=== PATIENT | female | born 1945 | race Hispanic/Latino ===

== ENCOUNTER 2018-10-07 11:34 | Inpatient (IN) | payer MEDICARE, OTHER ==
[~2018-10-07] VITALS: Ht 154.9 cm; Wt 93.0 kg
[~2018-10-07 11:34] MED LIST: LATANOPROST2.5 ML OP; LOSARTAN PO; MECLIZINE HCL12.5 MG PO; METOPROLOL PO; NAPROXEN250 MG PO; RANITIDINE HCL300 M1 PO; SERTRALINE HCL50 MG PO; SIMVASTATIN40 MG PO
--- OUTSIDE RECORDS SUMMARY | 2018-10-07 11:39 | XMS REPORT ---
[facility] Address Unknown Phone Unavailable Care Team Providers Care [employer] Salesperson Name Role Phone SILVINO OLIVAS Unavailable Unavailable Problems This patient has no known problems. Allergies, Adverse Reactions, Alerts This patient has no known allergies or adverse reactions. Medications This patient has no known medications. Results Test Description Test Time Test Comments Text Results Atomic Results Result Comments ABDOMEN-1VIEW (KUB) [place] [address] Patient Name: LEIGHA BARRETT MR #: [id number] : 1945 Age/Sex: 71/F [id number] Req #: [id number] Adm Physician: Ordered by: SILVINO OLIVAS MD Report #: [id number] Location: OR Room/Bed: Procedure: [id number] DX/ABDOMEN-1VIEW (KUB) Exam Date: 02/19/17 Exam Time: 0615 REPORT STATUS: Signed Exam: Abdominal film Clinical History: Preoperative study, renal stones Comparison: 02/05/2017 DISCUSSION: Large, laminated oblong calcification projecting over the right upper quadrant likely lies within the gallbladder. Suspected 7 mm calculus projecting over the right renal shadow is unchanged, as is a 19 mm cluster of calcifications projecting over the lower pole left renal shadow. 6-7 mm calculus more centrally projecting over the left renal shadow is less conspicuous on the current study. Bowel gas pattern is nonobstructive. Regional skeletal structures are intact. Degenerative disc changes of the lumbar spine IMPRESSION: Bilateral nephrolithiasis as above. Signed by: Dr. Dusty Jo M.D. on 02/19/2017 7:22 AM Dictated By: DUSTY JO MD 1 Transcribed By: SANTHOSH on 02/19/17721 COPY TO: SILVINO OLIVAS MD ABDOMEN-1VIEW (KUB) [place] [address] Patient Name: LEIGHA BARRETT MR #: [id number] : 1945 Age/Sex: 71/F [id number] Req #: [id number] Adm Physician: Ordered by: SILVINO OLIVAS MD Report #: [id number] Location: OR Room/Bed: Procedure: [id number] DX/ABDOMEN-1VIEW (KUB) Exam Date: 02/05/17 Exam Time: 0630 REPORT STATUS: Signed ABDOMEN-1VIEW (KUB) Clinical history: Preoperative, stones Technique: AP view abdomen, one view provided Comparison: 08/04/2015 Findings: Abdomen: Nonobstructive bowel gas pattern. Other: 7.7 cm lamellated stone is seen in the right upper quadrant possibly a gallstone. Multiple stones overlie the left kidney. The largest measures 2 cm over the left inferior pole with additional 7 and 5 mm adjacent stones inferiorly. 7 mm stone overlies the left renal pelvis, not seen on prior. Possible 7 mm calculus versus stool contents overlying the right kidney. Impression: Bilateral nephrolithiasis, increased from prior. Signed by: Dr Rachel Mueller MD on 02/05/2017 6:45 AM Dictated By: RACHEL MUELLER MD Transcribed By: Sahil SANTORO on 02/05/17 0645 COPY TO: SILVINO OLIVAS MD CHEST 2 VIEWS [facility] [address] [place] [address] Patient Name: LEIGHA BARRETT MR #: [id number] : 1945 Age/Sex: 71/F Req #: [id number] Adm Physician: Ordered by: SILVINO OLIVAS MD Report #: [id number] Location: OR Room/Bed: Procedure: [id number] DX/CHEST 2 VIEWS Exam Date: 02/03/17 Exam Time: 1315 REPORT STATUS: Signed PROCEDURE: Frontal and lateral views of the chest. COMPARISON: Chest 2 views 01/10/2016. INDICATIONS: PRE OPERATIVE CHEST X-RAY FOR RETROGRADE PYELOGRAM FINDINGS: Lines/tubes: None. Lungs: The lungs are well inflated and clear. There is no evidence of pneumonia or pulmonary edema. Pleura: There is no pleural effusion or pneumothorax. Heart and mediastinum: The heart and the mediastinum are normal. Bones: No acute bony abnormality. Degenerative changes of the thoracic spine. IMPRESSION: No acute radiographic abnormality. Dictated by: Ming Haas M.D. on 02/03/2017 at 13:39 Electronically approved by: Ming Haas M.D. on 02/03/2017 at 13:39 Dictated By: MING HAAS MD 1340 Transcribed By: STEPHON on 02/03/17 1340 COPY TO: SILVINO OLIVAS MD
[2018-10-07] MEDS ORDERED: SODIUM CHLORIDE 0.9% 1000ML 1,000 ML IV STA ×2 (12:36→16:27)
[2018-10-07] MEDS ORDERED: ONDANSETRON HCL INJ 2MG/ML 2ML 2 MG/ML VIAL IV STA (12:36)
[2018-10-07] MEDS ORDERED: ACETAMINOPHEN 325 MG TAB PO ONE (12:45)
[2018-10-07] MEDS: MEROPENEM 1GM 100 ML IV SCH ×2 (14:01→22:38)
[2018-10-07 14:15] LABS: BASOPHILS % 0.3 % (0.0-1.0); HEMATOCRIT 37.6 % (34.2-44.1); HEMOGLOBIN 13.2 g/dL (12.0-16.0); LYMPHOCYTES # (AUTO) 0.4 (1.0-3.2); LYMPHOCYTES % 12.5 % (18.0-39.1); MEAN CORPUSCULAR HEMOGLOBIN 31.4 pg (28-32); MEAN CORPUSCULAR HGB CONC 35.1 g/dL (31-35); MEAN CORPUSCULAR VOLUME 89.3 fL (81-99); MONOCYTES # (AUTO) 0.1 (0.2-0.8); MONOCYTES % 4.2 % (4.4-11.3); NEUTROPHILS # (AUTO) 2.6 (2.1-6.9); RED BLOOD COUNT 4.21 x10e6/uL (3.6-5.1)
[2018-10-07 14:17] LABS: PLATELET COUNT 43 x10e3/uL (140-360)
[2018-10-07 14:36] LABS: ALBUMIN 2.8 g/dL (3.5-5.0); ALBUMIN/GLOBULIN RATIO 0.8 (0.8-2.0); ANION GAP 12.6 mmol/L (8-16); CALCIUM 9.1 mg/dL (8.4-10.2); CREATININE, SERUM 1.65 mg/dL (0.57-1.11); POTASSIUM 3.6 mmol/L (3.5-5.1)
[2018-10-07 14:42] LABS: CREATINE KINASE MB 1.3 ng/mL (0-5.0)
[2018-10-07 14:59] LABS: B-TYPE NATRIURETIC PEPTIDE2 151.8 pg/mL (0-100)
[2018-10-07 15:18] LABS: CLARITY,URINE HAZY (CLEAR); COLOR,URINE YELLOW (YELLOW); LEUKOCYTE ESTERASE ,URINE 1+ (NEGATIVE)
[2018-10-07 15:19] LABS: BILIRUBIN,URINE NEGATIVE (NEGATIVE); KETONES,URINE NEGATIVE (NEGATIVE); NITRITE,URINE NEGATIVE (NEGATIVE); PROTEIN,URINE DIPSTICK NEGATIVE (NEGATIVE); URINE UROBILINOGEN 0.2 mg/dL (0.2 - 1)
[2018-10-07 15:36] LABS: BACTERIA,URINE MODERATE /HPF; EPITHELIAL CELLS,URINE MODERATE /LPF
[2018-10-07] MEDS ORDERED: SODIUM CHLORIDE 0.9% 1000ML 1,000 ML ONE (16:33)
[2018-10-07 16:58] LABS: LYMPHOCYTES % (MANUAL) 10 % (19-48); MONOCYTES % (MANUAL) 1 % (3.4-9.0); NEUTROPHILS % (MANUAL) 87 % (40-74)
[2018-10-07 16:59] LABS: PLATELET ESTIMATE MARKEDLY DECREASED; PLATELET MORPHOLOGY COMMENT FEW LARGE; RBC MORPHOLOGY COMMENT NORMAL
[2018-10-07] MEDS ORDERED: ONDANSETRON HCL INJ 2MG/ML 2ML 2 MG/ML VIAL IV PRN (18:30)
[2018-10-07] MEDS ORDERED: CEFUROXIME250 MG PO (19:11)
[2018-10-07] MEDS ORDERED: NAPROXEN250 MG PO (19:11)
[2018-10-07] MEDS: SODIUM CHLORIDE 0.9% 1000ML 1,000 ML IV SCH (19:13)
[2018-10-07 19:45] VITALS: BP 126/53
--- NOTE | 2018-10-07 19:45 | NUR ---
RECEIVED PATIENT FROM THE EMERGENCY ROOM VIA STRETCHER. ASSISTED TO TRANSFER TO BED. PATIENT IS ALERT AND ORIENTED. IV TO RIGHT AC 20G INTACT WITH ON GOING FLUIDS OF NS AT 100 CC/HR. ORIENTED TO ROOM. CALL LIGHT WITHIN REACHED AND ENCOURAGED TO USE.
[2018-10-07] MEDS: ACETAMINOPHEN 325 MG TAB PO PRN (20:27)
[2018-10-07 20:31] VITALS: BP 126/53
--- NOTE | 2018-10-07 20:58 | Diagnostic Imaging Report ---
Examination: Single AP view of the chest. COMPARISON: None. INDICATION: Urinary infection, fever IMPRESSION: 1. Lines and Tubes: None 2. Lungs are grossly clear. No consolidation or effusion. 3. Cardiomediastinal silhouette is normal. Pulmonary vasculature is normal. 4. No acute bony abnormalities. Signed by: Dr. Jeffrey Shane M.D. on 10/07/2018 8:55 PM
[2018-10-07 23:45] VITALS: BP 102/53
[2018-10-08] VITALS (8 sets, daily range): BP systolic 101–136; BP diastolic 46–63
[2018-10-08] MEDS: SODIUM CHLORIDE 0.9% 1000ML 1,000 ML IV SCH (04:24)
[2018-10-08] MEDS: ACETAMINOPHEN 325 MG TAB PO PRN ×3 (04:28→18:25)
--- NOTE | 2018-10-08 07:06 | NUR ---
RECEIVED PATIENT RESTING IN BED. NO ACUTE DISTRESS NOTED. DENIES PAIN OR DISCOMFORT. FAMILY AT BEDSIDE. CALL LIGHT WITHIN REACH.
[2018-10-08] MEDS: MEROPENEM 1GM 100 ML IV SCH ×2 (08:19→20:07)
[2018-10-08] MEDS: SERTRALINE HCL 50 MG TAB PO SCH (10:50)
[2018-10-08] MEDS: FAMOTIDINE 20 MG TAB PO SCH (10:50)
--- NOTE | 2018-10-08 14:38 | Diagnostic Imaging Report ---
EXAMINATION: CT of the abdomen and pelvis without contrast. TECHNIQUE: Spiral CT images of the abdomen and pelvis were performed from the lung bases to the lesser trochanters. No intravenous contrast was given per renal stone protocol. Coronal and sagittal reformatted images were obtained. Technique modification was performed to maintain the lowest dose possible to the patient. DLP: 735.44 mGy-cm COMPARISON: None. CLINICAL HISTORY:Fever, urinary tract infection and hypotension DISCUSSION: ABSENCE OF INTRAVENOUS CONTRAST DECREASES SENSITIVITY FOR DETECTION OF FOCAL LESIONS AND VASCULAR PATHOLOGY. ABDOMEN/PELVIS: LOWER THORAX: Small bilateral pleural effusions. Tiny pericardial effusion HEPATOBILIARY:No focal hepatic lesions. Nodular surface of the liver suggests cirrhosis. No biliary ductal dilation. There is a porcelain gallbladder. SPLEEN: No splenomegaly. PANCREAS: No focal masses or ductal dilatation. ADRENALS: No adrenal nodules. KIDNEYS/URETERS: Stones present within both kidneys. No hydronephrosis. Bilateral renal cortical thinning. Hypodensity within both renal regions and particularly in the upper pole likely represents edema. PELVIC ORGANS/BLADDER: The bladder is normal. PERITONEUM/RETROPERITONEUM: Minimal amount of free fluid in the pelvis. LYMPH NODES: No intra-abdominal,retroperitoneal, pelvic or inguinal lymphadenopathy. VESSELS: Vascular calcification. GI TRACT: No distention or wall thickening. Appendicolith within the base of the appendix without associated inflammatory changes. BONES AND SOFT TISSUES: No bony destructive lesions. Degenerative changes of the spine with significant disc space narrowing at L4-L5. No soft tissue abnormalities. IMPRESSION: 1. 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 2. Bilateral renal lithiasis. 3. Bilateral renal cortical atrophy. Signed by: Dr. Roderick Gutierrez DO on 10/08/2018 2:34 PM
--- NOTE | 2018-10-08 16:20 | History and Physical ---
CHIEF COMPLAINT: Fever, low blood pressure, recurrent urinary tract infection, failed outpatient treatment. HISTORY OF PRESENT ILLNESS: The patient is a 72-year-old female had bilateral kidney stones, had recurrent urinary tract infection in light of taking oral antibiotics. The patient came to the hospital with fever and low blood pressure. The patient was given normal saline and antibiotics, meropenem. She is doing a bit better. She did receive multiple bolus of IV fluid. PAST MEDICAL HISTORY: Recurrent urinary tract infection secondary to kidney stone. The patient is supposed to have cystoscopy with stone management, but because of her fever and infection, her procedure has been postponed with Dr. Alberto Tucker. The patient has hypertension. PAST SURGICAL HISTORY: Noncontributory. SOCIAL HISTORY: The patient does not smoke or use alcohol. No recreational drugs. ALLERGIES: PENICILLIN AND TAZOBACTAM. HOME MEDICATIONS: List reviewed. REVIEW OF SYSTEMS: As mentioned above. PHYSICAL EXAMINATION: VITAL SIGNS: Temperature is 99, blood pressure 111/53 on IV fluid, pulse rate 75, respirations 22. GENERAL: The patient is not in acute distress. She is awake. HEENT: Normocephalic, atraumatic. Anicteric. NECK: Supple grossly. PULMONARY: Diminished breath sounds. CARDIOVASCULAR: S1, S2. Regular rate and rhythm. ABDOMEN: Soft, obese, nontender, non-distention. EXTREMITIES: No cyanosis or edema. NEUROLOGIC: No gross focal deficit. LABORATORY DATA: WBC is 3.1, hemoglobin 13.2, hematocrit 37.6, platelets 43. Sodium is 124, potassium 3.6, chloride 94, bicarb 21, BUN 18, creatinine 1.6, glucose 124. IMPRESSION: 1. Sepsis with shock. 2. Thrombocytopenia, most likely from the above. 3. Hypotension, improving with multiple bolus IV fluids. 4. Kidney stone with infection, recurrent, urinary tract infection, failed outpatient treatment. PLAN: 1. Consultation with Dr. Godwin Charles for low platelet. 2. Consulting with Dr. Alberto Tucker. 3. Continue with meropenem and IV fluid. Resume some patient home medication. 4. We will monitor the patient closely at this time. MD HAILEY Lopez/LILLIE /[id number]
[2018-10-08] MEDS ORDERED: ONDANSETRON HCL 4 MG ORAL DISINTEGRATING TAB PO PRN (16:30)
--- NOTE | 2018-10-08 19:18 | NUR ---
REPORT GIVEN TO ONCOMING NURSE, WALKING ROUNDS DONE. PATIENT IS RESTING IN BED. NO ACUTE DISTRESS NOTED. DAUGHTER AT BEDSIDE. CALL LIGHT WITHIN REACH. BED IN THE LOWEST POSITION.
[2018-10-08] MEDS: SIMVASTATIN 40 MG TAB PO SCH (20:06)
[2018-10-08] MEDS ORDERED: LOPERAMIDE HCL 2 MG CAP PO PRN (20:15)
[2018-10-09] VITALS (8 sets, daily range): BP systolic 86–141; BP diastolic 48–67
[2018-10-09] MEDS: SODIUM CHLORIDE 0.9% 1000ML 1,000 ML IV SCH ×3 (00:24→16:57)
[2018-10-09] MEDS: ACETAMINOPHEN 325 MG TAB PO PRN ×4 (01:02→18:21)
[2018-10-09 05:53] LABS: HEMATOCRIT 32.3 % (34.2-44.1); HEMOGLOBIN 11.4 g/dL (12.0-16.0); LYMPHOCYTES # (AUTO) 0.5 (1.0-3.2); LYMPHOCYTES % 24.2 % (18.0-39.1); MEAN CORPUSCULAR HEMOGLOBIN 31.5 pg (28-32); MEAN CORPUSCULAR HGB CONC 35.3 g/dL (31-35); MEAN CORPUSCULAR VOLUME 89.2 fL (81-99); MONOCYTES # (AUTO) 0.2 (0.2-0.8); MONOCYTES % 8.2 % (4.4-11.3); NEUTROPHILS # (AUTO) 1.3 (2.1-6.9); NEUTROPHILS % 67.1 % (38.7-80.0); RED BLOOD COUNT 3.62 x10e6/uL (3.6-5.1); RED CELL DISTRIBUTION WIDTH 14.2 % (11.7-14.4)
[2018-10-09 06:04] LABS: INR 0.96; PROTHROMBIN TIME 13.3 seconds (11.9-14.5)
[2018-10-09 06:05] LABS: PARTIAL THROMBOPLASTIN TIME 38.7 seconds (23.8-35.5)
[2018-10-09 06:12] LABS: ALANINE AMINOTRANSFERASE 78 IU/L (0-55); ALBUMIN 2.2 g/dL (3.5-5.0); ALBUMIN/GLOBULIN RATIO 0.8 (0.8-2.0); ALKALINE PHOSPHATASE 146 IU/L (40-150); ANION GAP 8.9 mmol/L (8-16); BLOOD UREA NITROGEN 12 mg/dL (7-26); BUN/CREATININE RATIO 13 (6-25); CALCIUM 8.2 mg/dL (8.4-10.2); CARBON DIOXIDE 20 mmol/L (22-29); CHLORIDE 108 mmol/L (98-107); CREATININE, SERUM 0.91 mg/dL (0.57-1.11); EST GLOMERULAR FILTRATION RATE > 60 ML/MIN (60-); GLUCOSE 119 mg/dL (74-118); POTASSIUM 3.9 mmol/L (3.5-5.1); SODIUM 133 mmol/L (136-145)
[2018-10-09 06:40] LABS: PLATELET COUNT 49 x10e3/uL (140-360)
--- NOTE | 2018-10-09 06:47 | NUR ---
dr. booth pagejani of critical labs. waiting for response.
[2018-10-09 07:03] LABS: FOLATE 7.6 ng/mL (7.0-15.4)
--- NOTE | 2018-10-09 07:14 | NUR ---
call back received from dr. booth . Notified of critical platelet and wbc result. no new orders.
[2018-10-09] MEDS: FAMOTIDINE 20 MG TAB PO SCH (07:30)
[2018-10-09] MEDS: MEROPENEM 1GM 100 ML IV SCH ×2 (08:38→20:43)
[2018-10-09] MEDS: SERTRALINE HCL 50 MG TAB PO SCH (08:38)
--- NOTE | 2018-10-09 08:45 | NUR ---
The pt. reports cough and was medicated for same. She denies pain or discomfort at this time. Low grade temperature noted this morning. The pt. is sitting in bedside chair and advised to call for assistance.
[2018-10-09] MEDS ORDERED: METOPROLOL 100 MG PO SCH (09:00)
[2018-10-09 12:13] LABS: ANISOCYTOSIS SLIGHT; BAND NEUTROPHILS % (MANUAL) 8 %; LYMPHOCYTES % (MANUAL) 22 % (19-48); MONOCYTES % (MANUAL) 8 % (3.4-9.0); NEUTROPHILS % (MANUAL) 56 % (40-74); PLATELET ESTIMATE MARKEDLY DECREASED; PLATELET MORPHOLOGY COMMENT FEW LARGE; POIKILOCYTOSIS SLIGHT; RBC MORPHOLOGY COMMENT NORMAL
[2018-10-09] MEDS: BENZONATATE 100 MG CAP PO PRN (19:43)
[2018-10-09] MEDS: SIMVASTATIN 40 MG TAB PO SCH (20:43)
[2018-10-10] VITALS (8 sets, daily range): BP systolic 103–161; BP diastolic 55–70
[2018-10-10] MEDS: ACETAMINOPHEN 325 MG TAB PO PRN ×4 (01:48→23:40)
[2018-10-10] MEDS: SODIUM CHLORIDE 0.9% 1000ML 1,000 ML IV SCH ×2 (06:20→16:44)
[2018-10-10 06:21] LABS: BASOPHILS % 1.3 % (0.0-1.0); EOSINOPHILS % 0.4 % (0.0-6.0); HEMATOCRIT 33.2 % (34.2-44.1); HEMOGLOBIN 11.5 g/dL (12.0-16.0); LYMPHOCYTES # (AUTO) 0.9 (1.0-3.2); LYMPHOCYTES % 39.6 % (18.0-39.1); MEAN CORPUSCULAR HEMOGLOBIN 31.4 pg (28-32); MEAN CORPUSCULAR HGB CONC 34.6 g/dL (31-35); MEAN CORPUSCULAR VOLUME 90.7 fL (81-99); MONOCYTES # (AUTO) 0.2 (0.2-0.8); MONOCYTES % 7.7 % (4.4-11.3); NEUTROPHILS # (AUTO) 1.2 (2.1-6.9); NEUTROPHILS % 50.1 % (38.7-80.0); PLATELET COUNT 57 x10e3/uL (140-360); RED BLOOD COUNT 3.66 x10e6/uL (3.6-5.1); RED CELL DISTRIBUTION WIDTH 14.4 % (11.7-14.4)
[2018-10-10 06:48] LABS: ALANINE AMINOTRANSFERASE 78 IU/L (0-55); ALBUMIN/GLOBULIN RATIO 0.7 (0.8-2.0); ALKALINE PHOSPHATASE 186 IU/L (40-150); ANION GAP 8.5 mmol/L (8-16); BLOOD UREA NITROGEN 11 mg/dL (7-26); BUN/CREATININE RATIO 15 (6-25); CALCIUM 8.1 mg/dL (8.4-10.2); CARBON DIOXIDE 20 mmol/L (22-29); CHLORIDE 110 mmol/L (98-107); CREATININE, SERUM 0.74 mg/dL (0.57-1.11); EST GLOMERULAR FILTRATION RATE > 60 ML/MIN (60-); GLUCOSE 104 mg/dL (74-118); POTASSIUM 3.5 mmol/L (3.5-5.1); SODIUM 135 mmol/L (136-145)
[2018-10-10] MEDS: FAMOTIDINE 20 MG TAB PO SCH (07:30)
[2018-10-10] MEDS: CYANOCOBALAMIN 1,000 MCG TAB PO SCH (08:45)
[2018-10-10] MEDS: BENZONATATE 100 MG CAP PO PRN ×3 (08:45→23:40)
[2018-10-10] MEDS: MEROPENEM 1GM 100 ML IV SCH ×2 (08:45→21:44)
[2018-10-10] MEDS: FOLIC ACID 1 MG TAB PO SCH (08:45)
[2018-10-10] MEDS: SERTRALINE HCL 50 MG TAB PO SCH (08:45)
--- NOTE | 2018-10-10 09:46 | NUR ---
Pt stated feeling chills and hot. Temp assessed at this time, 100.2. Ordered tylenol administered at this time.
--- NOTE | 2018-10-10 10:15 | NUR ---
temp rechecked at this time, T of 98.0
--- NOTE | 2018-10-10 16:47 | NUR ---
Pt stated she is experiencing chills. Nurse observed pt shaking in bed. Temp taken at this time, 101.6. Ordered tylenol administered at this time.
--- NOTE | 2018-10-10 19:31 | NUR ---
Received bedside shift report from dayshift RN. Patient is laying on the bed with call light within reach, bed set low and side rails up x2. Patient is not in distress.
[2018-10-10] MEDS: SIMVASTATIN 40 MG TAB PO SCH (21:44)
[2018-10-11] VITALS (7 sets, daily range): BP systolic 131–151; BP diastolic 63–80
[2018-10-11] MEDS: SODIUM CHLORIDE 0.9% 1000ML 1,000 ML IV SCH (02:29)
[2018-10-11 06:42] LABS: BASOPHILS % 0.6 % (0.0-1.0); EOSINOPHILS % 0.3 % (0.0-6.0); HEMATOCRIT 32.7 % (34.2-44.1); HEMOGLOBIN 11.7 g/dL (12.0-16.0); LYMPHOCYTES # (AUTO) 1.8 (1.0-3.2); LYMPHOCYTES % 52.9 % (18.0-39.1); MEAN CORPUSCULAR HEMOGLOBIN 31.5 pg (28-32); MEAN CORPUSCULAR HGB CONC 35.8 g/dL (31-35); MEAN CORPUSCULAR VOLUME 88.1 fL (81-99); MONOCYTES # (AUTO) 0.2 (0.2-0.8); NEUTROPHILS # (AUTO) 1.3 (2.1-6.9); NEUTROPHILS % 39.9 % (38.7-80.0); PLATELET COUNT 67 x10e3/uL (140-360); RED BLOOD COUNT 3.71 x10e6/uL (3.6-5.1); RED CELL DISTRIBUTION WIDTH 14.5 % (11.7-14.4)
[2018-10-11 07:55] LABS: ALANINE AMINOTRANSFERASE 84 IU/L (0-55); ALBUMIN 2.1 g/dL (3.5-5.0); ALBUMIN/GLOBULIN RATIO 0.8 (0.8-2.0); ALKALINE PHOSPHATASE 243 IU/L (40-150); ANION GAP 8.3 mmol/L (8-16); BLOOD UREA NITROGEN 9 mg/dL (7-26); BUN/CREATININE RATIO 13 (6-25); CALCIUM 8.1 mg/dL (8.4-10.2); CARBON DIOXIDE 22 mmol/L (22-29); CHLORIDE 109 mmol/L (98-107); CREATININE, SERUM 0.68 mg/dL (0.57-1.11); EST GLOMERULAR FILTRATION RATE > 60 ML/MIN (60-); GLUCOSE 91 mg/dL (74-118); POTASSIUM 3.3 mmol/L (3.5-5.1); SODIUM 136 mmol/L (136-145)
[2018-10-11] MEDS: BENZONATATE 100 MG CAP PO PRN ×2 (07:55→21:11)
[2018-10-11] MEDS: FAMOTIDINE 20 MG TAB PO SCH (08:12)
[2018-10-11] MEDS: MEROPENEM 1GM 100 ML IV SCH ×2 (08:12→21:11)
[2018-10-11] MEDS: FOLIC ACID 1 MG TAB PO SCH (08:12)
[2018-10-11] MEDS: CYANOCOBALAMIN 1,000 MCG TAB PO SCH (08:12)
[2018-10-11] MEDS: SERTRALINE HCL 50 MG TAB PO SCH (08:12)
[2018-10-11] MEDS ORDERED: FLUCONAZOLE 100 MG TAB PO ONE (10:30)
[2018-10-11] MEDS ORDERED: POTASSIUM CHLORIDE 10MEQ EA PO ONE (10:30)
--- NOTE | 2018-10-11 10:36 | NUR ---
Dr. Madison Lindquist at bedside at this time, per consult.
--- NOTE | 2018-10-11 10:41 | NUR ---
Pt c/o pain to throat, white patchy substance observed on throat. Dr. Pina aware. New orders received.
--- NOTE | 2018-10-11 11:18 | Consultation ---
DATE OF CONSULTATION: 10/11/2018 REASON FOR CONSULTATION: Porcelain gallbladder. HISTORY OF PRESENT ILLNESS: The patient is a 72-year-old female, admitted to the hospital with urosepsis secondary to renal stones, who has developed pancytopenia in addition to the low platelet count and during the workup for her urosepsis had a CT scan of the abdomen that revealed a porcelain gallbladder. In addition, there is nodularity of the liver. There is elevation of liver enzymes. The patient overall enjoys good health. She denies any GI symptoms such as right upper quadrant pain or inability to eat fatty foods. She denies any right upper quadrant pain also. PHYSICAL EXAMINATION: Reveals an entirely benign abdomen without any tenderness. ASSESSMENT: 1. Urosepsis with pancytopenia, probable cirrhosis of the liver. 2. Incidentally found porcelain gallbladder without any evidence of cholecystitis by Radiology or by history. RECOMMENDATION: My recommendation is the patient does not require cholecystectomy now Once the current issues for which she came in are resolved, I would advise for her to have a GI evaluation, which could be done as an outpatient I suspect this patient is an undiagnosed cirrhotic. If she is found not to be cirrhotic, then consideration could be given to elective cholecystectomy. If she turns out to be cirrhotic, I believe that the better part of valor would be to avoid any type of elective intervention in a cirrhotic patient based upon a small risk of gallbladder cancer. Thank you very much for the courtesy of this consultation. MD NBA Reynolds/LILLIE /[id number] ROHINI
[2018-10-11 12:03] LABS: LYMPHOCYTES % (MANUAL) 53 % (19-48); MONOCYTES % (MANUAL) 5 % (3.4-9.0); NEUTROPHILS % (MANUAL) 41 % (40-74)
--- NOTE | 2018-10-11 12:54 | NUR ---
Pt ambulating in hallway at this time, assisted by daughter at side.
[2018-10-11] MEDS: NYSTATIN SUSPENSION 5 ML UDC PO SCH ×2 (14:00→21:11)
--- NOTE | 2018-10-11 14:55 | NUR ---
Visit made by the Spiritual Care Department Pastoral Visitor, Erica Sloan. PV provided pastoral presence, hospitality, and supportive listening. Pastoral Visitor informed pt/family of the scope of Pick Pulling Machine Tender Services and availability. NILES SCHUMACHER Contact Lens Assistant Spiritual Care Department O: [phone] Pager: [phone] ([phone] number calling from)
[2018-10-11] MEDS ORDERED: FUROSEMIDE INJ 10 MG/ML 2 ML VIAL IV ONE (17:00)
[2018-10-11] MEDS ORDERED: GADOBENATE DIMEGLUMINE 1 ML IV ONE (17:19)
[2018-10-11] MEDS ORDERED: IOPAMIDOL 370 MG/ML 200 ML INFUS..BTL INJ ONE (18:08)
[2018-10-11] MEDS ORDERED: SODIUM CHLORIDE 0.9% 50ML 50 ML ONE (18:08)
--- NOTE | 2018-10-11 18:57 | NUR ---
Received report from day shift RN. The patient is in the radiology department for MRI.
--- NOTE | 2018-10-11 19:27 | Diagnostic Imaging Report ---
CT chest with enhancement CPT code: 21059 INDICATION: Fever, cough TECHNIQUE: 5 mm collimation axial images obtained from the thoracic inlet to the level of the diaphragm following uneventful administration of 100 cc of low osmolar, nonionic intravenous contrast. RADIATION DOSE: Total DLP: 519.8 mGy*cm Estimated effective dose: (DLP x 0.015 x size factor) mSv CTDIvol has been reviewed. It is below the limits set by the Radiation Protocol Committee (RPC). Dose reduction techniques used: Automated exposure control, adjustment of the mAs and/or kVp according to patient size, standardized low-dose protocol, and/or iterative reconstruction technique. Comparison: CT abdomen/pelvis 10/08/2018. CHEST FINDINGS: Lymph nodes: No enlarged axillary, supraclavicular lymph nodes. A right paratracheal lymph node measures 6 x 10 mm. There is a calcified punctate subcarinal and right hilar lymph nodes. Thyroid: Normal size. Low attenuating lesion in the left lobe measures 5 mm and is too small to characterize. Mediastinum: Circumferential pericardial effusion measures 11 mm. No filling defects in the great vessels. Moderate burden of coronary artery atherosclerosis. The esophagus is normal. Lungs: Right Lung: No mass or infiltrate. Passive atelectasis in the posterior lower lobe. Left Lung: Spiculated mass or infiltrate in the medial upper lobe measures 1.5 x 1.9 x 1.9 cm. There is left basilar atelectasis, potentially chronic, in the anterior basal segment of the lower lobe. Pleura:Bilateral pleural effusions, small, measuring 15 mm on the right and 9 mm on the left. ABDOMEN: Cirrhosis. Uniformly hypervascular mass in the right lobe of the liver measuring approximately 2 cm. The spleen measures 16 cm in length. The portal vein is patent. There are calcified gallstones within the gallbladder. The right kidney is atrophic with prominence of the calyces. No perinephric inflammation. The left kidney is atrophic with superimposed cortical scarring. There is fullness of the collecting system similar to previous exam. There is a trace amount of perihepatic and perisplenic ascites. Bones: A sclerotic, nondestructive lesion in the body of T12 measures 9 mm. There are no destructive lesions. Soft tissues: Small coarse calcifications in the breasts, left more so than the right. IMPRESSION: 1. Spiculated mass or infiltrate in the left upper lobe with a prominent mediastinal lymph node. Please correlate for signs/symptoms of infection. A neoplastic process cannot be excluded. 2. Cirrhosis with hypervascular mass in the right lobe of the liver concerning for HCC. Splenomegaly and small amount of ascites. 3. Stable patulousness of the renal collecting systems. Cholelithiasis. Signed by: Dr. Anthony Carson MD on 10/11/2018 7:24 PM
--- NOTE | 2018-10-11 19:38 | Diagnostic Imaging Report ---
MRI abdomen CPT code: 72515 Indication: Low appetite and weakness, fever ^abnormal LFTs, fever, porcelain gallbladder, cytopenia ^[id number] ^1819 Technique: Axial T1 nonfat sat in and out of phase, axial T2 fat sat, coronal T2 nonfat sat, axial DWI and ADC MR images of the abdomen were obtained before and after the administration of 15 cc of gadolinium. Axial T1 fat sat GRE dynamic images in precontrast, arterial, venous and delayed phases were obtained. Comparison: CT abdomen 10/08/2018, CT chest 1608 hours Findings: Multiple pulse sequences are motion degraded. Liver: Mildly decreased signal on opposed phase sequence consistent with steatosis. Cirrhosis. Single mass in the right lobe (segment 8) measures 2.6 x 2.2 cm in the axial plane with evidence of washout. This mass was hypervascular on CT of the chest. Hypervascularity cannot be confirmed on this exam due to suboptimal timing of the contrast bolus. No evidence of mass in the left lobe. Portal vein: Patent and measures 13 mm in diameter. Portal splenic confluence is normal in morphology. SMV: Patent. Hepatic artery: Conventional branching and patent. Gallbladder: Present and contains multiple gallstones with a large gallstone near the neck measuring 4.9 cm. There is no gallbladder with thickening or pericholecystic fluid. No enhancing soft tissue mass in the gallbladder. Biliary tree: No intrahepatic or extra hepatic biliary ductal dilatation. The common bile duct measures 5 mm in diameter and tapers as it approaches the ampulla. Pancreas: Normal T1 signal. No mass or ductal dilatation Spleen: Measures 16 cm in length. No mass Adrenal glands: No mass Kidneys: There is fullness of the right and left renal collecting systems, particular the calyces without evidence of hydronephrosis. The kidneys are atrophic, left kidney more so than the right. Visualized portions of the ureters are well distended without intraluminal filling defects. The bladder is very distended without perivesicular inflammation. Lymph nodes: No enlarged abdominal, mesenteric, or periaortic lymph nodes Aorta: Normal in diameter. IVC: Patent and normal in morphology. Bowel: Stomach and visualized portions of the small bowel and large bowel are normal in diameter with normal wall thickness. Peritoneum/retroperitoneum: Small amount of abdominal ascites. No loculated fluid collection. Lung bases: Posterior layering pleural effusions and bibasilar atelectasis. Bones: Normal marrow signal. No focal osseous lesions. Soft tissues: Unremarkable. IMPRESSION: 1. Mass in the right lobe of the liver is suggestive of HCC (LR 4). 2. Cirrhosis and portal hypertension with small amount of ascites. 3. Cholelithiasis. No MRI evidence of acute cholecystitis. 4. Fullness of the renal collecting systems and ureters with a well distended bladder. No james hydronephrosis. Bilateral renal atrophy. LR-TR Viable= Treated, Probably or definitely viable LR-TR Equivocal= Treated, Equivocally viable LR-TR Nonviable= Treated, Probably or definitely not viable LR-TR Nonevaluable= Treated, Response not evaluable due to image omission or degradation LR-NC Cannot be categorized due to image degradation or omission LR M = Possible non-HCC malignancy LR TIV = Definitely hepatocellular carcinoma tumor in the vein LR5 = Definitely hepatocellular carcinoma (concordant with OPTN 5) LR 4 = Probably hepatocellular carcinoma LR 3 = Intermediate probability for hepatocellular carcinoma LR 2 = Probably benign LR 1 = Definitely benign Note: LI-RADS categories should be interpreted in the context of other available data, such as biomarkers and the patient's prior probability of developing or having hepatocellular carcinoma. The LI-RADS/OPTN classification of liver lesions has been adopted to standardize CT and MRI scan reporting in patients at risk for hepatocellular carcinoma. The imaging criteria for "definite hepatocellular carcinoma " are concordant for the LI-RADS and OPTN systems. LI-RADS criteria and documentation are available online at www.acr.org/LI-RADS. This report utilizes LI-RADS version 2018. Signed by: Dr. Anthony Carson MD on 10/11/2018 7:35 PM
[2018-10-11] MEDS: SIMVASTATIN 40 MG TAB PO SCH (21:11)
[2018-10-12] VITALS (8 sets, daily range): BP systolic 119–148; BP diastolic 56–75
[2018-10-12 06:01] LABS: BASOPHILS % 0.8 % (0.0-1.0); EOSINOPHILS % 0.8 % (0.0-6.0); HEMATOCRIT 30.2 % (34.2-44.1); HEMOGLOBIN 10.9 g/dL (12.0-16.0); LYMPHOCYTES # (AUTO) 2.2 (1.0-3.2); LYMPHOCYTES % 58.8 % (18.0-39.1); MEAN CORPUSCULAR HEMOGLOBIN 31.4 pg (28-32); MEAN CORPUSCULAR HGB CONC 36.1 g/dL (31-35); MONOCYTES # (AUTO) 0.3 (0.2-0.8); MONOCYTES % 7.3 % (4.4-11.3); NEUTROPHILS # (AUTO) 1.2 (2.1-6.9); PLATELET COUNT 82 x10e3/uL (140-360); RED BLOOD COUNT 3.47 x10e6/uL (3.6-5.1); RED CELL DISTRIBUTION WIDTH 14.6 % (11.7-14.4)
[2018-10-12 06:13] LABS: INR 0.99; PROTHROMBIN TIME 13.6 seconds (11.9-14.5)
[2018-10-12 06:14] LABS: PARTIAL THROMBOPLASTIN TIME 41.9 seconds (23.8-35.5)
[2018-10-12 06:25] LABS: ALANINE AMINOTRANSFERASE 80 IU/L (0-55); ALBUMIN/GLOBULIN RATIO 0.7 (0.8-2.0); ALKALINE PHOSPHATASE 276 IU/L (40-150); ANION GAP 7.5 mmol/L (8-16); BLOOD UREA NITROGEN 9 mg/dL (7-26); BUN/CREATININE RATIO 14 (6-25); CALCIUM 8.2 mg/dL (8.4-10.2); CARBON DIOXIDE 26 mmol/L (22-29); CHLORIDE 105 mmol/L (98-107); CREATININE, SERUM 0.66 mg/dL (0.57-1.11); EST GLOMERULAR FILTRATION RATE > 60 ML/MIN (60-); GLUCOSE 98 mg/dL (74-118); POTASSIUM 3.5 mmol/L (3.5-5.1); SODIUM 135 mmol/L (136-145)
[2018-10-12] MEDS: NYSTATIN SUSPENSION 5 ML UDC PO SCH ×3 (06:26→21:05)
--- NOTE | 2018-10-12 07:20 | NUR ---
PATIENT IS ALERT AND IN STABLE CONDITION WITH NO S/S OF RESPIRATORY DISTRESS. PATIENT DENIES PAIN. DAUGHTER PRESENT IN THE ROOM. CALL LIGHT IS WITHIN REACH, PATIENT INSTRUCTED TO CALL FOR ASSISTANCE NEEDED.
[2018-10-12] MEDS ORDERED: PHYTONADIONE 5 MG TAB PO ONE (07:30)
[2018-10-12] MEDS: FAMOTIDINE 20 MG TAB PO SCH (07:30)
[2018-10-12] MEDS: MEROPENEM 1GM 100 ML IV SCH ×2 (09:19→21:05)
[2018-10-12] MEDS: FLUCONAZOLE 100 MG TAB PO SCH (09:19)
[2018-10-12] MEDS: FOLIC ACID 1 MG TAB PO SCH (09:19)
[2018-10-12] MEDS: SERTRALINE HCL 50 MG TAB PO SCH (09:19)
[2018-10-12] MEDS: CYANOCOBALAMIN 1,000 MCG TAB PO SCH (09:19)
--- NOTE | 2018-10-12 10:18 | NUR ---
EDUCATED ABOUT IMM, SIGNED, FILED IN CHART, WITH COPY LEFT WITH FAMILY AT BEDSIDE.
[2018-10-12 13:52] LABS: BAND NEUTROPHILS % (MANUAL) 2 %; BLAST CELLS % MANUAL 11; EOSINOPHILS % (MANUAL) 1 % (0-7); LYMPHOCYTES % (MANUAL) 46 % (19-48); MONOCYTES % (MANUAL) 2 % (3.4-9.0); NEUTROPHILS % (MANUAL) 35 % (40-74)
[2018-10-12 13:54] LABS: ANISOCYTOSIS SLIGHT; HYPOCHROMASIA SLIGHT; MICROCYTOSIS SLIGHT; PLATELET ESTIMATE SLIGHTLY DECREASED; PLATELET MORPHOLOGY COMMENT NORMAL; RBC MORPHOLOGY COMMENT NORMAL
[2018-10-12] MEDS: BENZONATATE 100 MG CAP PO PRN (15:42)
--- NOTE | 2018-10-12 19:24 | NUR ---
PATIENT IS RESTING IN BED- IN STABLE CONDITION WITH NO S/S OF RESPIRATORY DISTRESS. NO PAIN VOICED. FAMILY MEMBERS PRESENT IN THE ROOM. CALL LIGHT IS WITHIN REACH, PATIENT INSTRUCTED TO CALL FOR ASSISTANCE NEEDED. BEDSIDE SHIFT REPORT GIVEN TO ONCOMING NURSE.
[2018-10-13] VITALS (7 sets, daily range): BP systolic 117–161; BP diastolic 56–67
[2018-10-13] MEDS: NYSTATIN SUSPENSION 5 ML UDC PO SCH ×3 (05:51→22:25)
[2018-10-13 06:15] LABS: BASOPHILS % 1.2 % (0.0-1.0); EOSINOPHILS % 0.9 % (0.0-6.0); HEMATOCRIT 30.4 % (34.2-44.1); HEMOGLOBIN 10.8 g/dL (12.0-16.0); LYMPHOCYTES # (AUTO) 2.1 (1.0-3.2); LYMPHOCYTES % 60.2 % (18.0-39.1); MEAN CORPUSCULAR HEMOGLOBIN 30.9 pg (28-32); MEAN CORPUSCULAR HGB CONC 35.5 g/dL (31-35); MEAN CORPUSCULAR VOLUME 87.1 fL (81-99); MONOCYTES # (AUTO) 0.3 (0.2-0.8); MONOCYTES % 8.4 % (4.4-11.3); PLATELET COUNT 97 x10e3/uL (140-360); RED BLOOD COUNT 3.49 x10e6/uL (3.6-5.1); RED CELL DISTRIBUTION WIDTH 14.5 % (11.7-14.4)
[2018-10-13 06:34] LABS: INR 0.96; PROTHROMBIN TIME 13.3 seconds (11.9-14.5)
[2018-10-13 06:35] LABS: PARTIAL THROMBOPLASTIN TIME 41.3 seconds (23.8-35.5)
[2018-10-13 06:44] LABS: ALANINE AMINOTRANSFERASE 81 IU/L (0-55); ALBUMIN/GLOBULIN RATIO 0.7 (0.8-2.0); ALKALINE PHOSPHATASE 300 IU/L (40-150); ANION GAP 6.3 mmol/L (8-16); BLOOD UREA NITROGEN 9 mg/dL (7-26); BUN/CREATININE RATIO 14 (6-25); CALCIUM 8.1 mg/dL (8.4-10.2); CARBON DIOXIDE 28 mmol/L (22-29); CHLORIDE 105 mmol/L (98-107); CREATININE, SERUM 0.63 mg/dL (0.57-1.11); EST GLOMERULAR FILTRATION RATE > 60 ML/MIN (60-); GLUCOSE 98 mg/dL (74-118); POTASSIUM 3.3 mmol/L (3.5-5.1); SODIUM 136 mmol/L (136-145)
[2018-10-13] MEDS: FAMOTIDINE 20 MG TAB PO SCH (07:30)
[2018-10-13 08:31] LABS: EOSINOPHILS % (MANUAL) 1 % (0-7); LYMPHOCYTES % (MANUAL) 49 % (19-48); MONOCYTES % (MANUAL) 3 % (3.4-9.0); NEUTROPHILS % (MANUAL) 47 % (40-74)
[2018-10-13 08:32] LABS: RBC MORPHOLOGY COMMENT NORMAL
[2018-10-13 08:33] LABS: PLATELET ESTIMATE SLIGHTLY DECREASED; PLATELET MORPHOLOGY COMMENT NORMAL
[2018-10-13] MEDS: MEROPENEM 1GM 100 ML IV SCH ×2 (09:13→21:41)
--- NOTE | 2018-10-13 09:24 | NUR ---
CALL PLACED OUT TO ON BEHALF OD RADIOLOGY TO SPEAK ON PATIENT'S BIOPSY TODAY-AWAITING CALLBACK. SPOKE WITH DR. SOLORZANO, WHILE HE WAS ON THE UNIT,DR. SOLORZANO STATED FOR THE PATIENT TO HAVE THE LUNG BIOPSY TODAY- WILL DISCUSS WITH DR. GRIMM.
--- NOTE | 2018-10-13 10:09 | NUR ---
RECEIVED ORDER FROM DR. GRIMM FOR SHAPING MACHINE TENDER CONSULT REGARDING PATIENT'S TUBE FEEDING AND WATER FLUSH AMOUNTS. SPOKE WITH SHAPING MACHINE TENDER REGARDING PATIENT'S FEEDING/AMOUNT AND WATER FLUSH/AMOUNT.
--- NOTE | 2018-10-13 11:53 | History and Physical ---
REASON FOR CONSULT: 1. Idiopathic liver cirrhosis. 2. Liver mass. HISTORY OF PRESENTING ILLNESS: A 72-year-old very pleasant female with a history of recurrent UTI, renal calculi, got admitted with a urinary tract infection. Workup included CT scan of the abdomen that showed incidental nodular liver as well as some history related mass or infiltrate in the left upper lobe with a prominent mediastinal lymphadenopathy. The patient is being seen by oncologist. GI has been consulted to evaluate her for liver cirrhosis. She does have a thrombocytopenia, which is likely due to underlying portal hypertension. The patient has no known history of liver cirrhosis. She never consumed alcohol excessively in her life. She has no known history of any hepatitis C. She is not sure if she was ever told that she had a fatty liver. She does not have diabetes. The patient has never had any upper endoscopy or colonoscopy. REVIEW OF SYSTEMS: Twelve point system reviewed. Symptomatology is limited to renal system. PAST MEDICAL HISTORY: Recurrent UTI, kidney stone. PAST SURGICAL HISTORY: None. FAMILY HISTORY: Noncontributory. Negative for any chronic liver disease. SOCIAL HISTORY: No smoking, alcohol, or any illicit drug use. ALLERGIES: PENICILLIN AND TAZOBACTAM. HOME MEDICATIONS: 1. Cefuroxime. 2. Naproxen. 3. Ranitidine. 4. Sertraline. 5. Simvastatin. 6. Losartan. 7. Metoprolol. Inpatient medications reviewed as per JUL. PHYSICAL EXAMINATION: VITAL SIGNS: Temperature 97.3, pulse 93, respirations 18, blood pressure 119/56, oxygen saturation 99% on room air. GENERAL: Not in any acute distress. HEENT: Oral mucosa is moist. Obese body habitus. Anicteric sclera. CVS: S1, S2. Regular. LUNGS: Bilaterally grossly clear. ABDOMEN: Truncal obesity, abdominal adiposity, nondistended, nontender. No palpable mass or hernia, no shifting dullness. Bowel sounds present. EXTREMITIES: Warm. Trace bilateral leg edema. LABORATORY DATA: WBC 3.47, hemoglobin 10.8, hematocrit 30.4, MCV 87.1, platelet count 97. Sodium 136, potassium 3.3, chloride 105, bicarb 28, BUN 9, creatinine 0.63. Liver enzymes showed a total bilirubin 0.9, AST down to 129 from 130, ALT 81 from 80, alkaline phosphatase 300 from 276, total protein 5.0, albumin 2.0. Viral hepatitis serology is negative for hepatitis B and C. WBCs 3.47, hemoglobin 10.8, hematocrit 30.4, MCV 87.1, and platelet count 97. IMAGING DATA: 1. MRI of the abdomen with contrast revealed a 2.6 x 2.2 cm mass in the right lobe. Suggestive of HCC. 2. Cirrhotic liver with underlying portal hypertension and a small amount of ascites. 3. Splenomegaly. 4. No intrabiliary ductal dilatation, common bile duct 5 mm in diameter. 5. Multiple gallstones without any gallbladder wall thickening or any pericholecystic fluid collection. No MRI evidence of acute cholecystitis. IMPRESSION: 1. Cryptogenic liver cirrhosis, likely due to underlying CHANG (nonalcoholic steatohepatitis) /fatty liver. 2. Portal thrombocytopenia from underlying splenomegaly and portal hypertension. 3. A 2.2 x 2.6 cm right lobe mass in a cirrhotic liver is nothing but HCC until and unless proved otherwise. 4. Lung mass, biopsies ordered. PLAN: From GI standpoint, I recommend to continue present medical management for urinary tract infection. Urology has already been consulted. The patient needs to be on a low-salt diet. Lactulose to ensure 1 or 2 bowel movement daily for prevention of any hepatic encephalopathy. Most of the patient's medical management for liver cirrhosis is to be done as an outpatient basis. I have given my business card to the patient's son at the bedside. We will follow her in my office within one week after discharge. I thank, Dr. Pina, for allowing me to participate in the care of this patient. Wicho Patel MD SA/LILLIE /[id number]
--- NOTE | 2018-10-13 13:26 | NUR ---
PATIENT OFF THE UNIT TO RADIOLOGY FOR LUNG BIOPSY- PATIENT IS IN STABLE CONDITION WITH NO S/S OF RESPIRATORY DISTRESS. IV SALINE LOCKED.
[2018-10-13] MEDS ORDERED: MIDAZOLAM HCL 2 MG/2 ML VIAL ONE (13:32)
[2018-10-13] MEDS ORDERED: FENTANYL CITRATE/PF 100MCG/2 ML INJ ONE (13:33)
[2018-10-13] MEDS ORDERED: LIDOCAINE HCL 1% LOCAL INJ 20 ML VIAL ONE (14:13)
[2018-10-13] MEDS ORDERED: GELATIN SPONGE 12-7MM ONE (14:13)
[2018-10-13] MEDS ORDERED: SODIUM CHLORIDE 0.9% 250ML 250 ML ONE (15:14)
[2018-10-13] MEDS ORDERED: GUAIFENESIN/DEXTROMETHORPHAN LIQD 5 ML UDC PO PRN (15:30)
--- NOTE | 2018-10-13 17:14 | Diagnostic Imaging Report ---
EXAMINATION: CHEST XRAY POST PROCEDURE INDICATION: Status post lung biopsy. COMPARISON: CT guided lung biopsy 10/13/2018. CT chest 10/11/2018. FINDINGS: TUBES and LINES: None. LUNGS: Lungs are not well inflated. Opacity in the left upper lung. Mild patchy left basilar opacity, likely atelectasis. There is no evidence of lobar pneumonia or pulmonary edema. PLEURA: No pleural effusion or pneumothorax. HEART AND MEDIASTINUM: The cardiomediastinal silhouette is unremarkable. BONES AND SOFT TISSUES: No acute osseous abnormality. UPPER ABDOMEN: No free air under the diaphragm. IMPRESSION: Opacity in the left upper lung corresponding to known pulmonary nodule and perilesional hemorrhage seen on CT guided biopsy from 10/13/2018. No evidence of pneumothorax. Signed by: Dr. Jessy Bradley MD on 10/13/2018 5:10 PM
--- NOTE | 2018-10-13 17:44 | NUR ---
Out of room. RD will revisit in the the AM.
--- NOTE | 2018-10-13 17:44 | NUR ---
PATIENT BACK ON THE UNIT FROM RECOVERY IN RADIOLOGY - PATIENT IS AWAKE, ALERT, AND IN STABLE CONDITION WITH NO S/S OF RESPIRATORY DISTRESS. NO PAIN VOICED. 02 AT 2L NC AND TELEMETRY APPLIED. FAMILY MEMBERS PRESENT IN THE ROOM. PATIENT HAS A BAND-AID TO HER LEFT ANTERIOR CHEST WALL- NO DRAINAGE NOTED. PATIENT IS LYING ON HER LEFT SIDE WITH HER RIGHT SIDE UP UNTIL 1800. CALL LIGHT IS WITHIN REACH, PATIENT INSTRUCTED TO CALL FOR ASSISTANCE NEEDED. ORDERS FOR PATIENT TO RESUME EATING AT 1830.
[2018-10-13] MEDS: LACTULOSE SYRUP 20 GM/30 ML UDC PO SCH (19:03)
[2018-10-13] MEDS: CYANOCOBALAMIN 1,000 MCG TAB PO SCH (19:03)
[2018-10-13] MEDS: FOLIC ACID 1 MG TAB PO SCH (19:03)
[2018-10-13] MEDS: FLUCONAZOLE 100 MG TAB PO SCH (19:03)
[2018-10-13] MEDS: SERTRALINE HCL 50 MG TAB PO SCH (19:03)
--- NOTE | 2018-10-13 19:28 | NUR ---
PATIENT IS SITTING UP IN BED AND EATING FROM HER DINNER TRAY. PATIENT IN STABLE CONDITION WITH NO S/S OF RESPIRATORY DISTRESS. NO PAIN VOICED. TELEMETRY AND O2 APPLIED. FAMILY MEMBERS PRESENT. CALL LIGHT IS WITHIN REACH, PATIENT INSTRUCTED TO CALL FOR ASSISTANCE NEEDED. BEDSIDE REPORT GIVEN TO ONCOMING NURSE.
--- NOTE | 2018-10-13 19:31 | Diagnostic Imaging Report ---
EXAMINATION: CHEST SINGLE (PORTABLE) INDICATION: ^[id number] ^[id number] COMPARISON: Chest radiograph 10/13/[address] guided biopsy 10/13/2018 FINDINGS: AP view TUBES and LINES: None. LUNGS: Lungs are well inflated. Interval percutaneous biopsy of the left upper lobe nodule with surrounding mild postbiopsy hemorrhage. PLEURA: Small left pleural effusion, unchanged. No pneumothorax. HEART AND MEDIASTINUM: The cardiomediastinal silhouette is unremarkable. BONES AND SOFT TISSUES: No acute osseous lesion. Soft tissues are unremarkable. UPPER ABDOMEN: No free air under the diaphragm. IMPRESSION: Interval left upper lobe nodule biopsy with surrounding postbiopsy alveolar hemorrhage as noted on CT. No pneumothorax. Stable small left pleural effusion. Signed by: Dr. Nataly Flores M.D. on 10/13/2018 7:27 PM
--- NOTE | 2018-10-13 22:05 | NUR ---
PATIENT ASSISTED TO REPOSITION IN BED, NO DISTRESS OBSERVED AND SHE DENIES PAIN. CALL LIGHT WITHIN EASY REACH, HER SON IS AT THE BEDSIDE.
[2018-10-14] VITALS (8 sets, daily range): BP systolic 124–154; BP diastolic 59–92
--- NOTE | 2018-10-14 01:44 | NUR ---
PATIENT IS SOUNDLY ASLEEP, NO RESPIRATORY DISTRESS OBSERVED AND CALL LIGHT WITHIN EASY REACH.
--- NOTE | 2018-10-14 04:40 | NUR ---
ROUNDS MADE, PATIENT OBSERVED SOUNDLY ASLEEP WITHOUT RESPIRATORY DISTRESS.
[2018-10-14] MEDS: NYSTATIN SUSPENSION 5 ML UDC PO SCH ×3 (06:22→21:49)
[2018-10-14 06:29] LABS: BASOPHILS % 0.7 % (0.0-1.0); EOSINOPHILS % 0.7 % (0.0-6.0); HEMOGLOBIN 10.5 g/dL (12.0-16.0); LYMPHOCYTES # (AUTO) 1.8 (1.0-3.2); LYMPHOCYTES % 61.5 % (18.0-39.1); MEAN CORPUSCULAR HEMOGLOBIN 31.4 pg (28-32); MEAN CORPUSCULAR VOLUME 89.8 fL (81-99); MONOCYTES # (AUTO) 0.3 (0.2-0.8); NEUTROPHILS # (AUTO) 0.8 (2.1-6.9); NEUTROPHILS % 27.8 % (38.7-80.0); PLATELET COUNT 105 x10e3/uL (140-360); RED BLOOD COUNT 3.34 x10e6/uL (3.6-5.1); RED CELL DISTRIBUTION WIDTH 14.8 % (11.7-14.4)
[2018-10-14 06:37] LABS: PROTHROMBIN TIME 13.7 seconds (11.9-14.5)
[2018-10-14 06:38] LABS: PARTIAL THROMBOPLASTIN TIME 38.8 seconds (23.8-35.5)
[2018-10-14 07:18] LABS: ANION GAP 6.3 mmol/L (8-16); BLOOD UREA NITROGEN 8 mg/dL (7-26); BUN/CREATININE RATIO 14 (6-25); CALCIUM 8.1 mg/dL (8.4-10.2); CARBON DIOXIDE 28 mmol/L (22-29); CHLORIDE 105 mmol/L (98-107); CREATININE, SERUM 0.59 mg/dL (0.57-1.11); EST GLOMERULAR FILTRATION RATE > 60 ML/MIN (60-); GLUCOSE 98 mg/dL (74-118); POTASSIUM 3.3 mmol/L (3.5-5.1); SODIUM 136 mmol/L (136-145)
[2018-10-14] MEDS: FAMOTIDINE 20 MG TAB PO SCH (07:30)
[2018-10-14] MEDS: MEROPENEM 1GM 100 ML IV SCH ×2 (08:56→21:49)
[2018-10-14] MEDS: FLUCONAZOLE 100 MG TAB PO SCH (09:00)
[2018-10-14] MEDS: CYANOCOBALAMIN 1,000 MCG TAB PO SCH (09:00)
[2018-10-14] MEDS: FOLIC ACID 1 MG TAB PO SCH (09:00)
[2018-10-14] MEDS: LACTULOSE SYRUP 20 GM/30 ML UDC PO SCH (09:00)
[2018-10-14] MEDS: SERTRALINE HCL 50 MG TAB PO SCH (09:00)
--- NOTE | 2018-10-14 09:05 | NUR ---
patient resting in bed, Alert with no distress, family at bed side
--- NOTE | 2018-10-14 19:36 | Progress Note ---
DATE: 10/14/2018 SUBJECTIVE: The patient has been kept n.p.o. for liver mass biopsy today. Reports no abdominal pain. She has had a bowel movement yesterday. REVIEW OF SYSTEMS: GENERAL: No fever or chills. CVS: No chest pain or palpitation. RESPIRATORY: No cough or expectoration. MEDICATIONS: Reviewed as per JUL. She is on intravenous meropenem along with other medications. PHYSICAL EXAMINATION: VITAL SIGNS: Temperature 98.4, pulse 75, respiration 20, blood pressure 154/92, and oxygen saturation 98% on room air. GENERAL: Not in any acute distress. HEENT: Oral mucosa is moist. Anicteric sclerae. ABDOMEN: Soft and nondistended. No palpable hepatosplenomegaly. No digitally appreciable any shifting dullness. Bowel sounds present. LABORATORY DATA: Sodium 136, potassium 3.3, chloride 105, bicarb 28, BUN 8, and creatinine 0.59. Viral hepatitis serologies negative for A, B, and C. AFP level pending. IMPRESSION: 1. Nonalcoholic steatohepatitis liver cirrhosis with mild ascites. 2. Right lobe liver mass measuring about 2.6 x 2.2 cm in size, highly suspicious for hepatocellular carcinoma. Biopsy of the mass plan today. 3. Renal calculi, recurrent urinary tract infection. 4. Lung mass, suspicious for metastasis. Biopsy is performed. PLAN: Follow up the biopsy results. Low-salt diet. Lactulose to ensure 1 or 2 bowel movement daily. The patient to follow up with me in my office within 1 to 2 weeks after discharge. The patient has my business card. Oncology Service is also following the patient. Wicho Patel MD SA/LILLIE /[phone]
[2018-10-15] VITALS (8 sets, daily range): BP systolic 140–163; BP diastolic 63–74
[2018-10-15] MEDS: BENZONATATE 100 MG CAP PO PRN (01:44)
[2018-10-15] MEDS: NYSTATIN SUSPENSION 5 ML UDC PO SCH ×3 (05:13→21:10)
[2018-10-15 06:02] LABS: BASOPHILS % 0.6 % (0.0-1.0); EOSINOPHILS % 0.6 % (0.0-6.0); HEMATOCRIT 30.9 % (34.2-44.1); HEMOGLOBIN 10.8 g/dL (12.0-16.0); LYMPHOCYTES # (AUTO) 2.1 (1.0-3.2); MEAN CORPUSCULAR HEMOGLOBIN 30.9 pg (28-32); MEAN CORPUSCULAR VOLUME 88.5 fL (81-99); MONOCYTES # (AUTO) 0.3 (0.2-0.8); MONOCYTES % 8.8 % (4.4-11.3); NEUTROPHILS # (AUTO) 0.8 (2.1-6.9); NEUTROPHILS % 24.7 % (38.7-80.0); PLATELET COUNT 114 x10e3/uL (140-360); RED BLOOD COUNT 3.49 x10e6/uL (3.6-5.1); RED CELL DISTRIBUTION WIDTH 14.8 % (11.7-14.4)
[2018-10-15 06:32] LABS: ANION GAP 6.4 mmol/L (8-16); BLOOD UREA NITROGEN 8 mg/dL (7-26); BUN/CREATININE RATIO 13 (6-25); CALCIUM 8.3 mg/dL (8.4-10.2); CARBON DIOXIDE 30 mmol/L (22-29); CHLORIDE 103 mmol/L (98-107); EST GLOMERULAR FILTRATION RATE > 60 ML/MIN (60-); GLUCOSE 96 mg/dL (74-118); POTASSIUM 3.4 mmol/L (3.5-5.1); SODIUM 136 mmol/L (136-145)
[2018-10-15 06:49] LABS: MAGNESIUM 1.9 MG/DL (1.3-2.1)
--- NOTE | 2018-10-15 07:06 | NUR ---
pt alert resp even and unlabored at this time no distress noted at this time, no c/o pain, pt able to make needs known will cont to monitor. call light in reach. family member at bedside.
[2018-10-15] MEDS: FLUCONAZOLE 100 MG TAB PO SCH (08:21)
[2018-10-15] MEDS: MEROPENEM 1GM 100 ML IV SCH ×2 (08:21→20:15)
[2018-10-15] MEDS: FOLIC ACID 1 MG TAB PO SCH (08:21)
[2018-10-15] MEDS: FAMOTIDINE 20 MG TAB PO SCH (08:21)
[2018-10-15] MEDS: SERTRALINE HCL 50 MG TAB PO SCH (08:21)
[2018-10-15] MEDS: CYANOCOBALAMIN 1,000 MCG TAB PO SCH (08:21)
[2018-10-15] MEDS: LACTULOSE SYRUP 20 GM/30 ML UDC PO SCH (08:21)
--- NOTE | 2018-10-15 11:30 | NUR ---
pt off unit for procedure.
[2018-10-15] MEDS ORDERED: MIDAZOLAM HCL 2 MG/2 ML VIAL ONE (12:49)
[2018-10-15] MEDS ORDERED: FENTANYL CITRATE/PF 100MCG/2 ML INJ ONE (12:49)
[2018-10-15] MEDS ORDERED: LIDOCAINE HCL 1% LOCAL INJ 20 ML VIAL ONE (13:07)
[2018-10-15 13:23] LABS: BAND NEUTROPHILS % (MANUAL) 1 %; EOSINOPHILS % (MANUAL) 2 % (0-7); LYMPHOCYTES % (MANUAL) 46 % (19-48); MONOCYTES % (MANUAL) 8 % (3.4-9.0); NEUTROPHILS % (MANUAL) 38 % (40-74)
[2018-10-15 13:25] LABS: HYPOCHROMASIA SLIGHT; PLATELET ESTIMATE SLIGHTLY DECREASED; PLATELET MORPHOLOGY COMMENT NORMAL; RBC MORPHOLOGY COMMENT NORMAL
[2018-10-15] MEDS ORDERED: GELATIN SPONGE 12-7MM ONE (14:10)
--- NOTE | 2018-10-15 16:32 | NUR ---
Nutrition Screen Note RD Recommendation for Physician: -Continue diet as ordered Plan of Care: RD following, monitoring for tolerance and adequacy Nutrition reason for involvement: LOS Primary Diagnose(s): 1. Nonalcoholic steatohepatitis liver cirrhosis with mild ascites. 2. Right lobe liver mass measuring about 2.6 x 2.2 cm in size, highly suspicious for hepatocellular carcinoma. Biopsy of the mass plan today. 3. Renal calculi, recurrent urinary tract infection. 4. Lung mass, suspicious for metastasis. Biopsy is performed. PMH: HTN Ht: 61in Wt: 175lb BMI: 33.1kg/m2 IBW: 105lb RD Assessment: (10/15) Chart reviewed. Labs and meds reviewed. 72yo F, who was admitted for fever and low BP. Visited pt in the room. Italian speaking only. Reviewed medical record. Pt has had average of 75% meal intake during hospital stays. No GI complains reported. LBM 10/14. Will continue to monitor and follow. Current Diet: low sodium diet Malnutrition Evaluation (date of eval) The patient does not meet criteria for a specified degree of malnutrition at this time. Will re-evaluate at follow-up as appropriate. Diet Education Needs Assessment: Diet education not indicated. Nutrition Care Level: low Signed: Joanne Garner, MS, RD, LD
[2018-10-15] MEDS: ACETAMINOPHEN 325 MG TAB PO PRN (17:10)
--- NOTE | 2018-10-15 17:17 | NUR ---
WOUND CARE PUP SCREEN Tanmay Score: 22 PUP: Conservative LOS: 7 days Age: 72 Alternating Pressure Air Mattress to Current Weight HOB = 15 Degrees Patient Position: LEFT PATIENT VISIT / SKIN CHECK: No Pressure Ulcers Identified. OOB with Min Assist. RECOMMENDATION: - Continue Conservative PUP Addendum: 10/15/18 at 1717 by Jose Martinez RN Amended: Links added.
--- NOTE | 2018-10-15 19:13 | NUR ---
report given to on coming nurse for continued care.
--- NOTE | 2018-10-15 22:17 | Progress Note ---
DATE: 10/15/2018 SUBJECTIVE: The patient reports no abdominal pain. She has had a liver biopsy done yesterday. Tolerating oral diet. Regular bowel movement. REVIEW OF SYSTEMS: GENERAL: No fever or chills. CARDIOVASCULAR SYSTEM: No chest pain, palpitation. RESPIRATORY: No cough or expectoration. MEDICATION: Inpatient medication list is reviewed. She is on intravenous meropenem along with other medication. PHYSICAL EXAMINATION: VITAL SIGNS: Temperature 97.8, pulse 74, respirations 18, blood pressure 163/74 to 144/65, oxygen saturation 100% on room air. GENERAL: Not in any acute distress. HEENT: Oral mucosa is moist. Anicteric sclerae. ABDOMEN: Soft. No palpable hepatosplenomegaly. No digitally appreciable shifting dullness. Bowel sounds present. LABORATORY DATA: WBC 3.20, hemoglobin 10.8, hematocrit 30.9, and platelet count 114. Sodium 136, potassium 3.4, chloride 103, bicarb 30, BUN 8, creatinine 0.60. AFP level is 192.1. Chest x-ray on 10/13/2018, showed 1. Interval left upper lobe nodule biopsy with surrounding postbiopsy alveolar hemorrhage. 2. No pneumothorax. 3. Stable small left pleural effusion. IMPRESSION: 1. Nonalcoholic steatohepatitis, liver cirrhosis with mild ascites. 2. Right lobe liver mass measuring about 2.6 x 2.2 cm status post biopsy. Result pending. 3. Renal calculi, recurrent urinary tract infection. 4. Lung mass suspicious for metastasis. Biopsies were performed. The biopsy samples were inadequate for evaluation. PLAN: Low-salt diet, follow lung biopsy results. AFP level is elevated. Therefore, it is most likely HCC. The histopathology of lung mass needs to be determined. The patient has my business card. Her most of the care for hepatitis C, liver cirrhosis. It will be taken care of as an outpatient. Wicho Patel MD SA/LILLIE /[phone]
[2018-10-16 00:44] VITALS: BP 127/60
--- NOTE | 2018-10-16 02:20 | NUR ---
PATIENT IS RESTING COMFORTABLY UPON MAKING ROUNDS, BOTH EYES CLOSED, NO DISTRESSED NOTED. FAMILY MEMBER PRESENT, BED LOCKED AND LOW, CALL LIGHT WITHIN EASY REACH, WILL CONTINUE TO MONITOR.
[2018-10-16 03:59] VITALS: BP 126/61
[2018-10-16] MEDS: NYSTATIN SUSPENSION 5 ML UDC PO SCH ×2 (06:00→14:00)
[2018-10-16 07:15] VITALS: BP 137/83
--- NOTE | 2018-10-16 07:15 | NUR ---
PATIENT SITTING AT BED SIDE TALKING TO FAMILY MEMBER. DENIED PAIN OR DISCOMFORT. BED IN LOWER POSITION, CALL LIGHT AT REACH.
--- NOTE | 2018-10-16 07:28 | NUR ---
REPORT GIVEN TO DAY TIME NURSE.
[2018-10-16] MEDS: FAMOTIDINE 20 MG TAB PO SCH (07:39)
[2018-10-16 07:58] VITALS: BP 187/83
[2018-10-16] MEDS: MEROPENEM 1GM 100 ML IV SCH (09:15)
[2018-10-16] MEDS: FOLIC ACID 1 MG TAB PO SCH (09:15)
[2018-10-16] MEDS: SERTRALINE HCL 50 MG TAB PO SCH (09:15)
[2018-10-16] MEDS: CYANOCOBALAMIN 1,000 MCG TAB PO SCH (09:15)
[2018-10-16] MEDS: LACTULOSE SYRUP 20 GM/30 ML UDC PO SCH (09:15)
[2018-10-16] MEDS: FLUCONAZOLE 100 MG TAB PO SCH (09:15)
--- NOTE | 2018-10-16 11:27 | NUR ---
PATIENT AMBULATED TO THE RESTROOM AND BACK TO BED. CALL LIGHT AT REACH. FAMILY AT BED SIDE.
[2018-10-16 11:40] VITALS: BP 131/72
--- NOTE | 2018-10-16 13:45 | Progress Note ---
DATE: 10/16/2018 SUBJECTIVE: The patient offers no GI complaints. Tolerating oral diets. Regular bowel movement. REVIEW OF SYSTEMS: GENERAL: No fever or chills. CVS: No chest pain or palpitation. RESPIRATORY: No cough or expectoration. MEDICATIONS: Inpatient medication list reviewed. She is on intravenous meropenem along with other medications. OBJECTIVE: VITAL SIGNS: Temperature 97.2, pulse 76, respirations 18, blood pressure 131/72, and oxygen saturation 98% on room air. GENERAL: Not in any acute distress. Sitting comfortably at the bedside chair. HEENT: Oral mucosa is moist. Anicteric sclerae. CVS: S1 and S2 regular. LUNGS: Bilaterally grossly clear. ABDOMEN: Soft, nondistended. No palpable hepatosplenomegaly. Nontender. No mass or hernia. Positive bowel sounds. EXTREMITIES: Warm. No leg edema. LABS: None drawn today. IMPRESSION: 1. Nonalcoholic steatohepatitis, liver cirrhosis with mild ascites. The patient likely had portal hypertension, thrombocytopenia is secondary to portal hypertension. 2. Right liver lobe mass measuring about 2.6 x 2.2 cm status post biopsy. Results pending. Renal calculi and recurrent urinary tract infection. She is on intravenous antibiotic. 3. Lung mass suspicious for metastasis. Biopsies were performed. Inadequate tissue for evaluation. PLAN: Continue low-salt diet. Follow up biopsy results. The patient's liver lesion is most likely HCC. If lung mass is not concerning for any metastasis, then the patient is a good candidate for radiofrequency ablation of HCC versus radio or chemoembolization of the tumor. The patient can be discharged from GI standpoint. The patient's son has my business card. I have instructed them to follow up with me in my office within one week after discharge. Wicho Patel MD SA/LILLIE /[id number]
[2018-10-16] MEDS ORDERED: POTASSIUM CHLORIDE 10MEQ EA PO ONE (15:45)
[2018-10-16 16:07] VITALS: BP 152/69
--- NOTE | 2018-10-16 16:30 | NUR ---
SPOKE WITH MD REGARDING ABNORMAL LAB RESULT, NEW ORDER RECEIVED AND IMPLEMENTED.
[2018-10-16] MEDS ORDERED: TYLENOL WITH C1 EACH PO (16:50)
[2018-10-16] MEDS ORDERED: ROBITUSSIN COU118 ML (16:51)
[2018-10-16] MEDS ORDERED: DIFLUCAN100 MG PO (16:51)
--- NOTE | 2018-10-16 17:45 | NUR ---
PATIENT DISCHARGED HOME. DISCHARGE INSTRUCTIONS, PRESCRIPTIONS, AND FOLLOW UP GIVEN TO PATIENT AND DAUGHTER, THEY VERBALIZED UNDERSTANDING. IV TO RIGHT FOREARM REMOVED WITH TIP INTACT. ALL PERSONAL ITEMS TAKEN WITH PATIENT. LEFT UNIT PER WHEEL CHAIR TO FRONT LOBBY IN STABLE CONDITION.
--- NOTE | 2018-10-17 01:12 | Discharge Summary ---
PRIMARY CARE PHYSICIAN: Cristhian Walker MD. CONSULTANTS: 1. Alberto Tucker MD. 2. Tiburcio Lindquist MD. 3. Godwin Charles MD. 4. Dr. Patel. 5. Aditya Gomez MD. FINAL DIAGNOSES: 1. Complicated urinary tract infection associated with multi-drug resistant bacteria, status post meropenem IV antibiotic treatment. The patient completed a course of IV antibiotic treatment. 2. In-hospital workup found the patient has right lobe liver mass 2 x 2.6 x 2.2 cm with liver cirrhosis, portal hypertension, gallstone. 3. Left upper lobe spiculated 1.5 x 1.9 x 1.9 cm associated with splenomegaly and small amount of abdominal ascites. 4. Status post both lung and liver biopsy pending pathology results. SUMMARY: The patient is a 72-year-old female with multiple pending procedures for the patient prior to her admission to the hospital. The patient apparently has kidney stones, awaiting for cystoscopy with kidney stone management. She had complicated urinary tract infection, admitted to the hospital after the patient was seen by Dr. Alberto Tucker as an outpatient. In the hospital, the patient continued with MDR urinary tract infection treatment with meropenem. The patient also has gallstones and pending for surgical intervention with Dr. Tiburcio Lindquist, but the patient because of family issue has not show up for a followup for her surgical intervention. While the patient in the hospital, she complained of some vague abdominal discomfort and workup pursued. The patient also noted to have increase in liver enzyme. Her CT scan of the abdomen without contrast did not show liver mass, but when she consistently with increasing liver enzyme, further workup needed. The patient subsequently had a CT scan without contrast. An abdominal MRI showed that the patient had mass of the right lobe of the liver, 2.6 x 2.2 cm associated with liver cirrhosis, splenomegaly, portal hypertension, and gallstones. The chest CT showed that she had spiculated 1.5 x 1.9 x 1.9 cm left upper lobe mass. 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 The patient also had low platelets on admission in the 50,000, but now is 114,000 on further followup. The patient is otherwise stable. She underwent two biopsies, first with lung biopsy and then subsequently liver biopsy. There was some delay in the schedule, but the patient did have liver biopsy on October 15, 2018. The patient has been cleared and eager to go home. She will follow up with Dr. Godwin Charles, Dr. Tiburcio Lindquist, Dr. Alberto Tucker and Dr. Patel as an outpatient for pathology report and further planning surgical intervention such as stone management as an outpatient and gallbladder surgery as an outpatient. Discussed with the patient and family at length on followup visit. Pathology of the lung and the liver is still pending. Her alpha-fetoprotein however is quite elevated at 192, normal is between 0 to 8. The patient will need to follow up closely. The patient is stable otherwise. LABORATORY STUDIES: Sodium is 136, potassium 3.4, replacement in progress, chloride 103, bicarb 30, BUN is 8, creatinine 0.6, and glucose 96. WBC 3.2, hemoglobin 10.8, hematocrit 30.9, and platelets 114. AST is 129, ALT is 81, alkaline phosphate is 300, total bilirubin is 0.9. PT 13, PTT 39, INR is 1.0. PLAN: The patient again will need to follow up closely for malignancy workup. MD HAILEY Lopez/LILLIE /[id number]
--- NOTE | 2018-10-19 07:55 | Diagnostic Imaging Report ---
CT and ultrasound Guided Fine Needle Aspiration and Core Biopsy of Right Hepatic Mass Comparison: CT MRI Abdomen 10/11/[address] Abdomen 10/08/2018. Consent: The nature of the procedure, including its risks, benefits and alternatives was explained to the patient who understood and gave consent. Operators: Jessy Bradley MD Anesthesia: Moderate conscious sedation. Continuous hemodynamic and respiratory monitoring was performed, including the use of pulse oximetry. Medications: 20 cc of 1% subcutaneous lidocaine IV Versed 1 mg and IV Fentanyl 50 mcg per nursing administration records Total sedation time: 45 minutes TECHNIQUE: The patient was placed in the supine position. Initial ultrasound demonstrated a right hepatic lobe mass. A satisfactory path to the lesion was chosen. The skin of the right upper abdomen was marked, prepped, draped and anesthetized with 1% lidocaine. With ultrasound guidance, a 16 gauge introducer needle was inserted into the right hepatic lobe mass. Position was confirmed with CT guidance. Three fine needle aspirates with a 20 gauge Chiba needle were performed. Pathology confirmed adequacy of the specimen. Subsequently, with ultrasound and CT guidance, five core biopsies with an 18 gauge biopsy device were obtained. Samples were sent to Pathology. Gelfoam embolization of the tract was performed and the introducer needle was subsequently removed. Sterile bandage was placed. Post procedural CT was performed demonstrating no immediate complication. The patient tolerated the procedure well. IMPRESSION: CT and ultrasound guided core biopsy and FNA of right hepatic lobe mass as above. Signed by: Dr. Jessy Bradley MD on 10/19/2018 7:52 AM
--- NOTE | 2018-10-19 08:09 | Diagnostic Imaging Report ---
CT guided left upper lobe lung nodule biopsy Comparison: CT Chest with contrast 10/11/2018. Consent: The nature of the procedure, including its risks, benefits and alternatives was explained to the patient who understood and gave consent. Operators: Jessy Bradley MD Anesthesia: Moderate conscious sedation. Continuous hemodynamic and respiratory monitoring was performed, including the use of pulse oximetry. Medications: 20 cc of 1% subcutaneous lidocaine IV Versed and IV Fentanyl per nursing administration records Total sedation time: 55 minutes. TECHNIQUE: The patient was placed in the supine position. Initial CT demonstrated a left upper lobe nodule. A satisfactory path to the lesion was chosen. The skin of the left upper chest was marked, prepped, draped and anesthetized with 1% lidocaine. With CT guidance, a 16 gauge introducer needle was inserted into the left upper lobe nodule. Position was confirmed with CT guidance. A single fine needle aspirate with a 20 gauge Chiba needle was performed. At this point, the patient was noted to have a moderate perilesional hemorrhage. The patient continued to be hemodynamically stable. However, given the hemorrhage, no pathology adequacy check was performed prior to core biopsy. A total of three core biopsies were obtained with coaxial technique with an 18 gauge device. Samples were provided to pathology. CT demonstrated stable perilesional hemorrhage. The introducer needle was removed and sterile bandage placed. The patient tolerated the procedure well and was clinically stable post procedurally. The patient was positioned in the left lateral decubitus position for recovery. IMPRESSION: CT guided FNA and core biopsy of left upper lobe pulmonary nodule as above. Moderate perilesional hemorrhage which was stable during the procedure and the patient continued to be hemodynamically stable. Will monitor with post procedural chest radiograph. Signed by: Dr. Jessy Bradley MD on 10/19/2018 8:06 AM
== END 2018-10-16 17:38 | disposition home or self-care (01) | DRG 871 ==
LOC: ER 11:34 → ERHOLD 18:37 → MED/SURG3 20:00
PROVIDERS: ADMIT Internal Medicine; ATTEND Internal Medicine
PROC: 0BBG3ZX Excision of Left Upper Lung Lobe, Percutaneous Approach, Diagnostic (ICD-10-PCS; principal; 2018-10-13)
PROC: 0FB13ZX Excision of Right Lobe Liver, Percutaneous Approach, Diagnostic (ICD-10-PCS; 2018-10-15)
PROC: 0F913ZX Drainage of Right Lobe Liver, Percutaneous Approach, Diagnostic (ICD-10-PCS; 2018-10-15)
DX: A41.9 Sepsis, unspecified organism (principal); R65.21 Severe sepsis with septic shock; N39.0 Urinary tract infection, site not specified; R18.8 Other ascites; D61.818 Other pancytopenia; K76.6 Portal hypertension; C22.0 Liver cell carcinoma; N20.0 Calculus of kidney; Z87.442 Personal history of urinary calculi; K74.60 Unspecified cirrhosis of liver; R16.0 Hepatomegaly, not elsewhere classified; R91.8 Other nonspecific abnormal finding of lung field; K80.80 Other cholelithiasis without obstruction; Z16.24 Resistance to multiple antibiotics; R16.1 Splenomegaly, not elsewhere classified; K82.8 Other specified diseases of gallbladder; K74.69 Other cirrhosis of liver; D69.59 Other secondary thrombocytopenia
CPT/HCPCS: 10009; 32405; 36415; 47000; 71045; 71260; 74176; 74183; 74470; 77012; 80048; 80053; 81001; 82105; 82248; 82550; 82553; 82607; 82746; 83605; 83735; 83880; 84100; 84484; 85025; 85379; 85384; 85610; 85730; 86704; 86706; 86803; 86900; 87040; 87086; 87340; 88172; 88173; 88305; 88307; 88313; 93005; 96367; 99152; 99153; 99284; J1940; J2001; J2250; J2405; J7030; J7050; Q9967